=== PATIENT | female | born 1995 | race Caucasian/White ===

== ENCOUNTER 2021-03-09 19:02 | Emergency (ER) | payer BC ==
[~2021-03-09] VITALS: Ht 165.1 cm; Wt 68.0 kg
[2021-03-09] MEDS ORDERED: ANXIETY MED. (23:53)
[2021-03-09] MEDS ORDERED: BIRTH CONTROL (23:53)
[2021-03-09] MEDS ORDERED: IBUP600 PO (23:54)
== END 2021-03-09 23:43 | disposition home or self-care (01) ==
LOC: ER 19:02
DX: G43.909 Migraine, unspecified, not intractable, without status migrainosus (principal); F17.210 Nicotine dependence, cigarettes, uncomplicated
CPT/HCPCS: 96372; 99284-25; J1885; J2550